=== PATIENT | female | born 1970 | race American Indian/Alaskan Native ===

== ENCOUNTER 2019-07-22 12:16 | Emergency (ER) | payer SELFPAY ==
--- NOTE | 2019-07-22 14:23 | Event Note ---
ED Screening Note Date of service: 07/22/19 Time: 14:10 ED Screening Note: Pt complains of abdominal pain x 1 month, worsening x 1 week pain is mid/epigastric denies stool changes +urinary frequency, vaginal discharge, and dyspareunia pain10 This initial assessment/diagnostic orders/clinical plan/treatment(s) is/are subject to change based on patients health status, clinical progression and re- assessment by fellow clinical providers in the ED. Further treatment and workup at subsequent clinical providers discretion. Patient/guardian urged not to elope from the ED as their condition may be serious if not clinically assessed and managed. Initial orders include: labs UA CT
[2019-07-22] MEDS ORDERED: MORPHINE 4 MG/1 ML INJ IV ONE (14:25)
[2019-07-22] MEDS ORDERED: ONDANSETRON 4 MG ODT TAB PO ONE (14:25)
[2019-07-22 15:16] LABS: Hematocrit 29.8 % (30.3-42.9); Hemoglobin 9.5 gm/dl (10.1-14.3); Mean Corpuscular HGB Conc 32 % (30-34); Mean Corpuscular Volume 66 fl (79-97); Platelet Count 489 K/mm3 (140-440); Red Blood Count 4.53 M/mm3 (3.65-5.03)
[2019-07-22 15:17] LABS: Red Cell Distribution Width 20.5 % (13.2-15.2)
[2019-07-22 15:21] LABS: Alanine Aminotransferase 19 units/L (7-56); Albumin 4.5 g/dL (3.9-5); BUN/Creatinine Ratio 17; Blood Urea Nitrogen 10 mg/dL (7-17); Calcium 9.1 mg/dL (8.4-10.2); Hemolysis Index 12
[2019-07-22 15:58] LABS: Bacteria,Urine 2+ /HPF (Negative); Bilirubin,Urine NEG (Negative); Blood,Urine MOD (Negative); Color,Urine Yellow (Yellow); Mucus,Urine FEW /HPF; Protein,Urine <15 mg/dL mg/dL (Negative); Urobilinogen,Urine < 2.0 mg/dL (<2.0)
[2019-07-22 16:02] LABS: HCG Qualitative,Urine Negative (Negative)
--- NOTE | 2019-07-22 17:30 | Cat Scan Report ---
CT abdomen pelvis w con INDICATION: Left lower quadrant pain. TECHNIQUE: All CT scans at this location are performed using the following dose modulation technique: Automated exposure control. Helical slices were obtained through the abdomen and pelvis. 100 cc of Omnipaque 30 0 is administered. COMPARISON: None available. FINDINGS: The lung bases are clear. The liver, spleen, pancreas, adrenal glands, and kidneys are unremarkable. The aorta is normal in diameter. The appendix is unremarkable. Bowel is unremarkable. There is no obs truction, inflammation, or free air. Collections. Scattered diverticula in the colon. Pelvis: There is no obstruction, inflammation, or free air. There are no abnormal collections. There are diverticula in the proximal sigmoid colon. There is no CT evidence of diverticulitis. There is no adenopathy or inflammation. On review of bone windows, no acute osseous abnormalities are seen area IMPRESSION: 1. There is no obstruction, inflammation, or free air. There are no abnormal collections. There are s cattered diverticula in the colon. There is no CT evidence of diverticulitis. Signer Name: Demetrius Thomas MD Signed: 07/22/2019 5:25 PM Workstation Name: [id number]
[2019-07-22 19:14] VITALS: BP 130/71
[2019-07-22] MEDS ORDERED: AZITHROMYCIN 1 GM ORAL PWDR PACKET PO ONE (19:34)
[2019-07-22] MEDS ORDERED: LIDOCAINE-MPF (1%) 10 MG/1 ML VIAL 5 ML INFILTRATI ONE (19:34)
--- NOTE | 2019-07-22 19:37 | Emergency Department Report ---
ED Female HPI - General Chief complaint: Abdominal Pain Stated complaint: LOWER ABD PAIN/VAGINAL DISCHARGE Time Seen by Provider: 07/22/19 14:09 Source: patient Mode of arrival: Ambulatory Limitations: No Limitations - History of Present Illness Initial comments: Patient is a 49-year-old female presents emergency room with complaints of suprapubic abdominal pain that began 2 months ago. She has associated vaginal discharge with an odor and vaginal itching. She denies any vomiting, diarrhea, fever, dysuria. She states she is sexually active with one partner and is concerned for STDs. She denies any vaginal lesions or blisters. She states her last menstrual cycle was jul 02, 2019. she denies any allergies medications. - Related Data Previous Rx's Medication Instructions Recorded Last Taken Type Acetaminophen/Codeine [Tylenol #3] 1 tab PO Q6H PRN #14 tab 10/21/15 Unknown Rx metroNIDAZOLE [Flagyl] 500 mg PO Q12HR #14 tab 10/21/15 Unknown Rx Ferrous Sulfate [Ferrous Sulfate 324 mg PO DAILY #30 tablet. 07/22/19 Unknown Rx 324 MG] cephALEXin [Keflex] 500 mg PO BID 7 Days #14 capsule 07/22/19 Unknown Rx Allergies Allergy/AdvReac Type Severity Reaction Status Date / Time No Known Allergies Allergy Verified 10/21/15 13:11 ED Review of Systems ROS: Stated complaint: LOWER ABD PAIN/VAGINAL DISCHARGE Other details as noted in HPI Comment: All other systems reviewed and negative ED Past Medical Hx - Past Medical History Previous Medical History?: No - Surgical History Past Surgical History?: Yes Additional Surgical History: tubal ligation - Social History Smoking Status: Current Every Day Smoker Substance Use Type: None - Medications Home Medications: Home Medications Medication Instructions Recorded Confirmed Last Taken Type Acetaminophen/Codeine [Tylenol #3] 1 tab PO Q6H PRN #14 tab 10/21/15 Unknown Rx metroNIDAZOLE [Flagyl] 500 mg PO Q12HR #14 tab 10/21/15 Unknown Rx Ferrous Sulfate [Ferrous Sulfate 324 mg PO DAILY #30 tablet. 07/22/19 Unknown Rx 324 MG] cephALEXin [Keflex] 500 mg PO BID 7 Days #14 capsule 07/22/19 Unknown Rx ED Physical Exam - General Limitations: No Limitations General appearance: alert, in no apparent distress - Head Head exam: Present: atraumatic, normocephalic - Eye Eye exam: Present: normal appearance - ENT ENT exam: Present: mucous membranes moist - Respiratory Respiratory exam: Present: normal lung sounds bilaterally. Absent: respiratory distress, wheezes, rales, rhonchi, stridor, chest wall tenderness, accessory muscle use, decreased breath sounds, prolonged expiratory - Cardiovascular Cardiovascular Exam: Present: regular rate, normal rhythm, normal heart sounds. Absent: systolic murmur, diastolic murmur, rubs, gallop - GI/Abdominal GI/Abdominal exam: Present: soft, tenderness (mild suprapubic ), normal bowel sounds. Absent: distended, guarding, rebound, rigid - External exam: Present: normal external exam. Absent: erythema, swelling, lesions, lacerations, ecchymosis Speculum exam: Present: vaginal discharge (small amount of white discharge ), ot her (screening nurse: MILKA Mccracken) Bi-manual exam: Present: normal bi-manual exam. Absent: cervical motion tendernes, adnexal tenderness, adnexal mass - Neurological Exam Neurological exam: Present: alert, oriented X3 - Psychiatric Psychiatric exam: Present: normal affect, normal mood - Skin Skin exam: Present: warm, dry, intact ED Course Vital Signs 07/22/19 07/22/19 07/22/19 14:08 17:40 20:10 Temperature 98.5 F 97.6 F Pulse Rate 81 58 L 78 Respiratory 18 17 16 Rate Blood Pressure 130/70 Blood Pressure 130/71 [Left] O2 Sat by Pulse 99 100 99 Oximetry ED Medical Decision Making - Lab Data Result diagrams: 07/22/19 14:36 07/22/19 14:36 Lab Results 07/22/19 07/22/19 07/22/19 Range/Units 14:36 14:36 14:36 WBC 6.4 (4.5-11.0) K/mm3 RBC 4.53 (3.65-5.03) M/mm3 Hgb 9.5 L (10.1-14.3) gm/dl Hct 29.8 L (30.3-42.9) % MCV 66 L (79-97) fl MCH 21 L (28-32) pg MCHC 32 (30-34) % RDW 20.5 H (13.2-15.2) % Plt Count 489 H (140-440) K/mm3 Sodium 139 (137-145) mmol/L Potassium 3.8 (3.6-5.0) mmol/L Chloride 105.1 (98-107) mmol/L Carbon Dioxide 19 L (22-30) mmol/L Anion Gap 19 mmol/L BUN 10 (7-17) mg/dL Creatinine 0.6 L (0.7-1.2) mg/dL Estimated GFR > 60 ml/min BUN/Creatinine Ratio 17 % Glucose 109 H (65-100) mg/dL Calcium 9.1 (8.4-10.2) mg/dL Total Bilirubin 0.30 (0.1-1.2) mg/dL AST 18 (5-40) units/L ALT 19 (7-56) units/L Alkaline Phosphatase 55 (35-129) units/L Total Protein 7.9 (6.3-8.2) g/dL Albumin 4.5 (3.9-5) g/dL Albumin/Globulin Ratio 1.3 % Lipase 18 (13-60) units/L Urine Color (Yellow) Urine Turbidity (Clear) Urine pH (5.0-7.0) Ur Specific [place] (1.003-1.030) Urine Protein (Negative) mg/dL Urine Glucose (UA) (Negative) mg/dL Urine Ketones (Negative) mg/dL Urine Blood (Negative) Urine Nitrite (Negative) Urine Bilirubin (Negative) Urine Urobilinogen (<2.0) mg/dL Ur Leukocyte Esterase (Negative) Urine WBC (Auto) (0.0-6.0) /HPF Urine RBC (Auto) (0.0-6.0) /HPF U Epithel Cells (Auto) (0-13.0) /HPF Urine Bacteria (Auto) (Negative) /HPF Urine Mucus /HPF Urine HCG, Qual (Negative) C.trachomatis DNA (SDA) (Not Detected) N.gonorrhoeae DNA (SDA) (Not Detected) 07/22/19 07/22/19 Range/Units 15:34 19:14 WBC (4.5-11.0) K/mm3 RBC (3.65-5.03) M/mm3 Hgb (10.1-14.3) gm/dl Hct (30.3-42.9) % MCV (79-97) fl MCH (28-32) pg MCHC (30-34) % RDW (13.2-15.2) % Plt Count (140-440) K/mm3 Sodium (137-145) mmol/L Potassium (3.6-5.0) mmol/L Chloride (98-107) mmol/L Carbon Dioxide (22-30) mmol/L Anion Gap mmol/L BUN (7-17) mg/dL Creatinine (0.7-1.2) mg/dL Estimated GFR ml/min BUN/Creatinine Ratio % Glucose (65-100) mg/dL Calcium (8.4-10.2) mg/dL Total Bilirubin (0.1-1.2) mg/dL AST (5-40) units/L ALT (7-56) units/L Alkaline Phosphatase (35-129) units/L Total Protein (6.3-8.2) g/dL Albumin (3.9-5) g/dL Albumin/Globulin Ratio % Lipase (13-60) units/L Urine Color Yellow (Yellow) Urine Turbidity Cloudy (Clear) Urine pH 6.0 (5.0-7.0) Ur Specific [place] 1.012 (1.003-1.030) Urine Protein <15 mg/dl (Negative) mg/dL Urine Glucose (UA) Neg (Negative) mg/dL Urine Ketones Neg (Negative) mg/dL Urine Blood Mod (Negative) Urine Nitrite Neg (Negative) Urine Bilirubin Neg (Negative) Urine Urobilinogen < 2.0 (<2.0) mg/dL Ur Leukocyte Esterase Mod (Negative) Urine WBC (Auto) 11.0 H (0.0-6.0) /HPF Urine RBC (Auto) 7.0 (0.0-6.0) /HPF U Epithel Cells (Auto) 48.0 H (0-13.0) /HPF Urine Bacteria (Auto) 2+ (Negative) /HPF Urine Mucus Few /HPF Urine HCG, Qual Negative (Negative) C.trachomatis DNA (SDA) Not detected (Not Detected) N.gonorrhoeae DNA (SDA) Not detected (Not Detected) - Medical Decision Making Patient is a 49-year-old female presents emergency room with complaints of suprapubic abdominal pain that began 2 months ago. She has associated vaginal discharge with an odor and vaginal itching. She denies any vomiting, diarrhea, fever, dysuria. She states she is sexually active with one partner and is concerned for STDs. She denies any vaginal lesions or blisters. She states her last menstrual cycle was jul 02, 2019. she denies any allergies medications. VSS. on exam: mild suprapubic. no CMT no adenxal tenderness/masses no clinical signs of PID or TOA. wet prep is negative. G/C swab sent. UA shows evidence of UTI.urine preg negative. labs significant for microcytic anemia, will start pt on iron supplement. Patient prophylactically treated for GC/C with azithromycin and ceftriaxone. Patient given prescriptions for Keflex, iron supplement. advised pt to please take medication as prescribed. Please increase your fluid intake. 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 Please have partner tested and treated as well. No sexual intercourse for 10 days. Please follow-up with [employer] in a primary care doctor in the next 2-3 days. Return to the emergency room for any new or worsening symptoms. - Differential Diagnosis UTI, vaginitis, STD, yeast, BV, PID Critical care attestation.: If time is entered above; I have spent that time in minutes in the direct care of this critically ill patient, excluding procedure time. ED Disposition Clinical Impression: Vaginal discharge UTI (urinary tract infection) Qualifiers: Urinary tract infection type: acute cystitis Hematuria presence: without hematuria Qualified Code(s): N30.00 - Acute cystitis without hematuria Anemia Qualifiers: Anemia type: unspecified type Qualified Code(s): D64.9 - Anemia, unspecified Disposition: - TO HOME OR SELFCARE Is pt being admited?: No Does the pt Need Aspirin: No Condition: Stable Instructions: Urinary Tract Infection in Women (ED), Vaginitis (ED), Anemia (ED) Additional Instructions: Please take medication as prescribed. Please increase your fluid intake. 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 Please have partner tested and treated as well. No sexual intercourse for 10 days. Please follow-up with [employer] in a primary care doctor in the next 2-3 days. Return to the emergency room for any new or worsening symptoms. Prescriptions: Ferrous Sulfate [Ferrous Sulfate 324 MG] 324 mg PO DAILY #30 tablet. cephALEXin [Keflex] 500 mg PO BID 7 Days #14 capsule Referrals: [facility] [Provider Group] - 2-3 Days JAYNE RODRÍGUEZ MD [Staff Physician] - 2-3 Days Forms: Accompanied Note, Work/School Release Form(ED) Time of Disposition: 19:41 Print Language: FRISIAN
== END 2019-07-22 20:10 | disposition home or self-care (01) ==
LOC: ED 12:16
DX: N39.0 Urinary tract infection, site not specified (principal); D64.9 Anemia, unspecified; F17.200 Nicotine dependence, unspecified, uncomplicated; Z98.51 Tubal ligation status
CPT/HCPCS: 36415; 74177; 80053; 81001; 81025; 83690; 85027; 87086; 87210; 87591; 96372; 96374; 99285; J0696; J2270; Q9967; Q0162

== ENCOUNTER 2019-10-28 17:16 | Emergency (ER) | payer SELFPAY ==
[2019-10-28 18:12] VITALS: BP 143/64
--- NOTE | 2019-10-28 21:20 | Event Note ---
ED Screening Note ED Screening Note: states she has had vaginal bleeding since 10/14/2019 states it has become very heavy and passing large clots states she is changing her pads every 30 minutes pelvic pain denies hx of heavy periods states she feels lightheaded and fatigue This initial assessment/diagnostic orders/clinical plan/treatment(s) is/are subject to change based on patients health status, clinical progression and re- assessment by fellow clinical providers in the ED. Further treatment and workup at subsequent clinical providers discretion. Patient/guardian urged not to elope from the ED as their condition may be serious if not clinically assessed and managed. Initial orders include: labs, US
[2019-10-28 21:42] LABS: Basophils # (Auto) 0.1 K/mm3 (0.0-0.1); Eosinophils % (Auto) 0.5 % (0.0-4.3); Hematocrit 30.1 % (30.3-42.9); Hemoglobin 9.5 gm/dl (10.1-14.3); Lymphocytes # (Auto) 2.7 K/mm3 (1.2-5.4); Lymphocytes % (Auto) 33.9 % (13.4-35.0); Mean Corpuscular HGB Conc 32 % (30-34); Platelet Count 518 K/mm3 (140-440); Red Blood Count 4.49 M/mm3 (3.65-5.03)
[2019-10-28 21:52] LABS: Mean Corpuscular Volume 67 fl (79-97)
[2019-10-28 21:53] LABS: Red Cell Distribution Width 20.1 % (13.2-15.2)
[2019-10-28 22:53] LABS: Bilirubin,Urine NEG (Negative); Blood,Urine LG (Negative); Color,Urine Yellow (Yellow); Mucus,Urine 3+ /HPF; Urobilinogen,Urine < 2.0 mg/dL (<2.0)
--- NOTE | 2019-10-28 22:55 | Ultrasound Report ---
Pelvic ultrasound complete INDICATION: Pelvic pain, heavy vaginal bleeding COMPARISON: CT scan dated 07/22/2019 FINDINGS: Transabdominal imaging is performed. Patient declined transvaginal imaging. The uterus lalit ures 10.5 cm in length. Endometrial stripe measures 14 mm. No focal mass lesion is seen. The right ovary measures 2.8 cm and the left ovary measures 2.7 cm. No adnexal masses are seen. No fr ee fluid is seen. IMPRESSION: There is some mild thickening of the endometrial stripe which is nonspecific in the setting. This is likely simply related to phase of patient's menstrual cycle. Possibility of an endometrial mass is in cluded in the differential diagnosis but less likely Signer Name: Demetrius Thomas MD Signed: 10/28/2019 10:51 PM Workstation Name: [id number]
== END 2019-10-29 02:08 | disposition home or self-care (01) ==
LOC: ED 17:16
DX: N93.9 Abnormal uterine and vaginal bleeding, unspecified (principal); Z53.21 Procedure and treatment not carried out due to patient leaving prior to being seen by health care provider
CPT/HCPCS: 36415; 76856; 81001; 84702; 85025; 86850; 86900; 86901